=== PATIENT | male | born 1955 | race Caucasian/White ===

== ENCOUNTER → 2018-08-02 09:11 | Outpatient (CLI) | payer BC ==
[2018-08-02 10:03] LABS: HEMATOCRIT 27.4 % (42.0-54.0); HEMOGLOBIN 8.4 g/dL (13.5-17.5); MCH 23.6 pg (26.0-34.0); MCHC 30.7 g/dL (31.0-37.0); RBC 3.56 10x6/uL (4.20-6.10); RDW 16.4 % (11.5-14.5); WBC 4.9 10x3/uL (4.8-10.8)
[2018-08-02 10:04] LABS: PLATELET COUNT 187 10x3/uL (130-400)
[2018-08-02 10:09] LABS: AMORPHOUS SEDIMENT <1+ /lpf (NONE SEEN); APPEARANCE HAZY (CLEAR); BILIRUBIN NEGATIVE (NEGATIVE); COLOR YELLOW (YELLOW); GLUCOSE NEGATIVE (NEGATIVE); KETONE NEGATIVE (NEGATIVE); MUCUS >1+ /lpf (NONE SEEN); NITRITE NEGATIVE (NEGATIVE); PROTEIN NEGATIVE (NEGATIVE); UROBILINOGEN NORMAL (NORMAL)
[2018-08-02 10:10] LABS: BACTERIA FEW /hpf (NONE SEEN); EPITHELIAL CELLS 0-5 /hpf (0-5); WHITE CELLS - URINE 0-5 /hpf (0-5)
[2018-08-02 10:19] LABS: ALKALINE PHOSPHATASE 83 U/L (46-116); ALT (SGPT) 23 U/L (10-68); BILIRUBIN - TOTAL 1.02 mg/dL (0.2-1.3); CALC OSMOLALITY 278 mosm/kg (275-300); CALCIUM 8.8 mg/dL (8.5-10.1); CARBON DIOXIDE 30.3 mmol/L (21.0-32.0); CHLORIDE - SERUM 104 mmol/L (98-107); CHOL - HDL RATIO 3.6 ratio (2.3-4.9); CHOLESTEROL, TOTAL 129 mg/dL (0-200); GLUCOSE 85 mg/dL (74-106); HDL CHOLESTEROL 36 mg/dL (32-96); LDL CHOLESTEROL 74 mg/dL (0-100); LDL-HDL RATIO 2.1 ratio (1.5-3.5); MAGNESIUM - SERUM 2.1 mg/dL (1.8-2.4); PHOSPHOROUS 3.4 mg/dL (2.5-4.9); POTASSIUM - SERUM 3.8 mmol/L (3.5-5.1); PROTEIN - SERUM 7.2 g/dL (6.4-8.2); SODIUM 140 mmol/L (136-145); THYROID STIMULATING HORMONE 1.67 uIU/mL (0.36-3.74); TRIGLYCERIDE 99 mg/dL (30-200); UREA NITROGEN 15 mg/dL (7-18); eGFR NON AFRICAN AMERICAN 81 mL/min (90-120)
[2018-08-02 10:21] LABS: SCREENING PSA (YEARLY) 0.66 ng/mL (0.00-4.00)
[2018-08-02 10:34] LABS: EOSINOPHILS 2 % (0-7); LYMPHOCYTES 24 % (15-50); MONOCYTES 10 % (2-11); NEUTROPHILS 61 % (40-80); PLATELET ESTIMATE NORMAL; ROULEAUX OCC
[2018-08-03 16:08] LABS: VITAMIN D 25 HYDROXY 57.4 ng/mL (30.0-100.0)
[2018-08-06 17:14] LABS: SPE - A/G RATIO 1.5 (0.7-1.7); SPE - ALPHA-1 GLOBULIN 0.2 g/dL (0.0-0.4); SPE - ALPHA-2 GLOBULIN 0.6 g/dL (0.4-1.0); SPE - GAMMA GLOBULIN 0.8 g/dL (0.4-1.8); SPE - M-SPIKE Not Observed g/dL (Not Observed); SPE - TOTAL PROTEIN 6.6 g/dL (6.0-8.5)
== END | disposition home or self-care (01) ==
LOC: D.LAB 09:11
PROVIDERS: Family Medicine
DX: M81.8 Other osteoporosis without current pathological fracture (principal); G47.30 Sleep apnea, unspecified; J30.9 Allergic rhinitis, unspecified; N32.81 Overactive bladder; M72.2 Plantar fascial fibromatosis; E23.6 Other disorders of pituitary gland; Z12.5 Encounter for screening for malignant neoplasm of prostate

== ENCOUNTER → 2018-08-07 11:14 | Outpatient (CLI) | payer BC ==
[2018-08-07 12:04] LABS: BASOPHILS 0.5 % (0-2); EOSINOPHILS 4.4 % (0-7); HEMATOCRIT 41.4 % (42.0-54.0); HEMOGLOBIN 14.6 g/dL (13.5-17.5); IMMATURE GRANULOCYTES 0.2 % (0-5); LYMPHOCYTES 21.8 % (15-50); MCH 34.4 pg (26.0-34.0); MCHC 35.3 g/dL (31.0-37.0); MCV 97.4 fL (80.0-100.0); MEAN PLATELET VOLUME 11.4 fL (7.4-10.4); MONOCYTES 9.9 % (2-11); NEUTROPHILS 63.2 % (40-80); RBC 4.25 10x6/uL (4.20-6.10); RDW 12.2 % (11.5-14.5); WBC 4.4 10x3/uL (4.8-10.8)
[2018-08-07 12:05] LABS: PLATELET COUNT 138 10x3/uL (130-400)
== END | disposition home or self-care (01) ==
LOC: D.LAB 10:45
PROVIDERS: Family Medicine
DX: R79.89 Other specified abnormal findings of blood chemistry (principal)

== ENCOUNTER → 2019-03-02 10:00 | Outpatient (CLI) | payer BC ==
[2019-03-02 07:44] LABS: CALC OSMOLALITY 275 mosm/kg (275-300); CALCIUM 8.8 mg/dL (8.5-10.1); CARBON DIOXIDE 30.7 mmol/L (21.0-32.0); CHLORIDE - SERUM 103 mmol/L (98-107); GLUCOSE 81 mg/dL (74-106); POTASSIUM - SERUM 4.1 mmol/L (3.5-5.1); SODIUM 140 mmol/L (136-145); UREA NITROGEN 7 mg/dL (7-18); eGFR NON AFRICAN AMERICAN 80 mL/min (90-120)
== END ==
LOC: D.LABREF 10:00 → D.LAB 10:16
PROVIDERS: ATTEND Family Medicine
DX: E87.1 Hypo-osmolality and hyponatremia (principal)